=== PATIENT | male | born 2000 ===

== ENCOUNTER → 2022-09-22 | Outpatient (CLI) | payer BC ==
[~2022-09-22] MED LIST: ACET325UDC; AMOCLA250S PO; AMOX250CH PO; AMOX500 PO; AMOX50SU PO; CEPH250SUA PO; CODACEE120 PO; MULTCH
== END | disposition home or self-care (01) ==
LOC: LAB SHORT 15:14
DX: J02.9 Acute pharyngitis, unspecified (principal)
CPT/HCPCS: 87081